=== PATIENT | male | born 2000 | race Caucasian/White ===

== ENCOUNTER 2021-11-30 16:39 | Emergency (ER) | payer OTHER ==
[~2021-11-30] VITALS: Ht 180.3 cm; Wt 68.0 kg
[2021-11-30 17:44] VITALS: BP 127/75
[2021-11-30 18:32] LABS: CLARITY,URINE CLEAR (Clear); COLOR,URINE YELLOW (Yellow); GLUCOSE, URINE NEGATIVE (Neg); KETONES,URINE NEGATIVE (Neg); LEUKOCYTE ESTERASE ,URINE NEGATIVE (Neg); NITRITES, URINE NEGATIVE (Neg); OCCULT BLOOD,URINE NEGATIVE (Neg); PROTEIN,URINE NEGATIVE (Neg); UROBILINOGEN,URINE 0.2 E.U/dL (0.2-1.0)
[2021-11-30 18:37] LABS: UA COLLECTION TYPE CLN CATCH MIDSTREAM
== END 2021-11-30 20:24 | disposition home or self-care (01) ==
LOC: ER 16:40
DX: N43.3 Hydrocele, unspecified (principal)
CPT/HCPCS: 36415; 76870; 81003; 87491; 93976; 99284